=== PATIENT | female | born 1955 ===

== ENCOUNTER → 2017-09-07 | Outpatient (CLI) | payer BC | LOC: M WHC 14:25 | DX: Z12.31 Encounter for screening mammogram for malignant neoplasm of breast (principal); M85.88 Other specified disorders of bone density and structure, other site; M85.851 Other specified disorders of bone density and structure, right thigh; M85.852 Other specified disorders of bone density and structure, left thigh | CPT/HCPCS: 77067 ==

== ENCOUNTER → 2019-12-05 | Outpatient (CLI) | payer BC ==
--- NOTE | 2019-12-05 10:20 | REPMRS ---
Patient History The patient states she had a clinical breast exam in 09/2019. Patient is postmenopausal. No known family history of cancer. No Hormone Replacement Therapy 3D TOMOSYNTHESIS WAS PERFORMED. [facility] lifetime risk for breast cancer is 9.2%. [facility] Digital Woman Screen Mammo: December 05, 2019 - Exam #: [id number] Bilateral CC and MLO view(s) were taken. Technologist: Radha Jesus, Technologist Prior study comparison: September 07, 2017, bilateral digital woman screen mammo performed at [facility]. January 03, 2014, digital woman screen mammo performed at [facility]. FINDINGS: The breast tissue is extremely dense which could obscure a lesion on mammography. There has been no change in the appearance of the mammogram from the prior studies. There is a moderate amount of residual fibroglandular tissue which is fairly symmetric. There is no interval development of dominant mass, areas of architectural distortion, or clustered microcalcification typical of malignancy. No significant changes when compared with prior studies. Assessment: BI-RADS/ACR category 1 mammogram. Negative Mammogram. Recommendation Routine screening mammogram in 1 year (for women over age 40). This mammogram was interpreted with the aid of an FDA-approved computer-aided dectection system. Electronically Signed By: Sameer Bonilla MD 12/05/19 1019
== END ==
LOC: M WHC 08:49
PROVIDERS: ATTEND Internal Medicine
DX: Z12.31 Encounter for screening mammogram for malignant neoplasm of breast (principal)